=== PATIENT | male | born 2000 | race Caucasian/White ===

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

== ENCOUNTER 2024-09-09 22:02 | Emergency (ER) | payer BC ==
[2024-09-09] MEDS: Diphtheria,Pertussis(Acell),Tetanus Vaccine 0.5 ML Syringe IM ONE (23:12)
== END 2024-09-09 23:17 | disposition home or self-care (01) ==
LOC: MW.ED 22:02
DX: S61.412A Laceration without foreign body of left hand, initial encounter (principal); Z23 Encounter for immunization; W26.0XXA Contact with knife, initial encounter
CPT/HCPCS: 12001; 12041; 90471; 90715; 99282-25; 99283